=== PATIENT | male | born 1960 | race Hispanic/Latino ===

== ENCOUNTER 2019-03-24 15:57 | Outpatient (CLI) | payer OTHER ==
--- NOTE | 2019-03-24 17:15 | XRay Report ---
LEFT KNEE 3 VIEWS INDICATION / CLINICAL INFORMATION: PAIN LT KNEE. COMPARISON: None available. FINDINGS: Marked medial joint space narrowing with mild lateral and patellofemoral degenerative change. No othe r significant skeletal abnormality. Signer Name: Jose Nuñez MD FACR Signed: 03/24/2019 5:10 PM Workstation Name: [id number]
== END 2019-03-24 15:58 | disposition home or self-care (01) ==
LOC: XRAY 15:57
PROVIDERS: ATTEND Orthopaedic Surgery
DX: M17.12 Unilateral primary osteoarthritis, left knee (principal)

== ENCOUNTER 2019-04-08 06:01 | Inpatient (IN) | payer OTHER ==
--- NOTE | 2019-04-06 11:40 | Anesthesia Consultation ---
Anesthesia Consult and Med Hx Date of service: 04/06/19 - Airway Anesthetic Teeth Evaluation: Poor (multiple loose teeth, worse with bottom incisors) ROM Head & Neck: Adequate Mental/Hyoid Distance: Adequate Mallampati Class: Class II Intubation Access Assessment: Probably Good - Pulmonary Exam CTA: Yes - Cardiac Exam Cardiac Exam: RRR - Pre-Operative Health Status ASA Pre-Surgery Classification: ASA2 Proposed Anesthetic Plan: Epidural Nerve Block: Adductor canal - Pulmonary Hx Smoking: Yes (quit 15 yrs ago) Hx Respiratory Symptoms: No Hx Sleep Apnea: No (STEFF PRE SCREEN HIGH RISK) - Cardiovascular System Hx Hypertension: Yes (recent diagnosis) Hx Heart Attack/AMI: No Hx Percutaneous Transluminal Coronary Angioplasty (PTCA): No - Central Nervous System Hx Neuromuscular Disorder: No CVA: No - Gastrointestinal Hx Ulcer: Yes - Endocrine Hx Renal Disease: No Hx Liver Disease: No Hx Insulin Dependent Diabetes: No Hx Non-Insulin Dependent Diabetes: No Hx Thyroid Disease: No - Other Systems Hx Obesity: No - Additional Comments Anesthesia Medical History Comments: No hx anesthetic complications. Patient OK with epidural but open to GA if necessary. Also consented for nerve block. Will bring antihypertensive with him DOS.
[2019-04-06 12:04] LABS: Basophils # (Auto) 0.1 K/mm3 (0.0-0.1); Basophils % (Auto) 1.4 % (0.0-1.8); Eosinophils # (Auto) 0.1 K/mm3 (0.0-0.4); Eosinophils % (Auto) 1.9 % (0.0-4.3); Hematocrit 35.4 % (35.5-45.6); Hemoglobin 11.5 gm/dl (11.8-15.2); Lymphocytes # (Auto) 0.9 K/mm3 (1.2-5.4); Lymphocytes % (Auto) 14.2 % (13.4-35.0); Mean Corpuscular HGB Conc 32 % (32-34); Mean Corpuscular Volume 72 fl (84-94); Monocytes # (Auto) 0.8 K/mm3 (0.0-0.8); Monocytes % (Auto) 12.9 % (0.0-7.3); Platelet Count 452 K/mm3 (140-440); Red Blood Count 4.95 M/mm3 (3.65-5.03); Red Cell Distribution Width 17.5 % (13.2-15.2)
[2019-04-06 12:32] LABS: Albumin 4.2 g/dL (3.9-5); Calcium 9.4 mg/dL (8.4-10.2)
[~2019-04-08 06:01] MED LIST: CELECOXIB 200 MG CAP PO NR; GABAPENTIN 300 MG CAP PO NR; MIDAZOLAM 2 MG/2 ML INJ IV NR; ceFAZolin/STERILE WATER 2 GM/20 ML SYRINGE IV NR; fentaNYL 100 MCG/2 ML INJ IV PRN
[2019-04-08] MEDS ORDERED: LACTATED RINGERS 1,000 ML ONE (06:52)
[2019-04-08] MEDS ORDERED: ONDANSETRON 4 MG/2 ML INJ IV PRN (07:21)
--- NOTE | 2019-04-08 07:21 | Anesthesia Day of Surgery ---
Anesthesia Day of Surgery - Day of Surgery Patient Examined: Yes Patient H&P Reviewed: Yes Patient is NPO: Yes
[2019-04-08] MEDS ORDERED: LIDOCAINE (1%) 10 MG/1 ML VIAL 20 ML MDV ONE (07:22)
[2019-04-08] MEDS ORDERED: BUPIVACAINE-EPINEPHRINE/PF 0.5%-1:200,000 (30 ML) VIAL INFILTRATI ONE (07:22)
[2019-04-08] MEDS ORDERED: HYDROmorphone 1 MG/1 ML INJ ONE (07:23)
[2019-04-08] MEDS ORDERED: PROPOFOL 200 MG/20 ML VIAL IV ONE ×2 (07:23→08:34)
[2019-04-08] MEDS ORDERED: LIDOCAINE MPF (2%) 20 MG/1 ML VIAL 5 ML ONE (07:24)
[2019-04-08] MEDS ORDERED: CELECOXIB 200 MG CAP ONE (07:25)
[2019-04-08] MEDS ORDERED: ceFAZolin/Water 2 GM/20 ML 2 GM/20 ML SYRINGE IV ONE (07:26)
[2019-04-08] MEDS ORDERED: fentaNYL 100 MCG/2 ML INJ ONE (07:26)
[2019-04-08] MEDS ORDERED: MIDAZOLAM 2 MG/2 ML INJ ONE ×2 (07:26→08:34)
[2019-04-08] MEDS ORDERED: GABAPENTIN 300 MG CAP ONE (07:26)
[2019-04-08] MEDS: LACTATED RINGERS 1,000 ML IV SCH ×2 (07:30→21:35)
[2019-04-08] MEDS ORDERED: ONDANSETRON 4 MG/2 ML INJ ONE ×2 (07:35)
[2019-04-08] MEDS ORDERED: BUPIVACAINE/PF (0.5%) 5 MG/1 ML 30 ML VIAL INFILTRATI ONE ×2 (07:37→10:51)
[2019-04-08] MEDS ORDERED: MORPHINE 10 MG/1 ML INJ ONE (07:37)
[2019-04-08] MEDS ORDERED: SODIUM CHLORIDE 0.9% 50 ML ONE (07:37)
[2019-04-08] MEDS ORDERED: TRANEXAMIC ACID 1,000 MG/10 ML ONE (07:37)
[2019-04-08] MEDS ORDERED: KETOROLAC 30 MG/1 ML INJ ONE (07:37)
[2019-04-08] MEDS ORDERED: SODIUM CHLORIDE 0.9% 200 ML ONE (07:38)
[2019-04-08] MEDS ORDERED: KETAMINE/STERILE WATER 50 MG/ML SYRINGE ONE (08:34)
[2019-04-08] MEDS ORDERED: TRANEXAMIC ACID 1,000 MG/10 ML IV ONE (10:51)
[2019-04-08] MEDS ORDERED: KETOROLAC 30 MG/1 ML INJ IV ONE (10:51)
[2019-04-08] MEDS ORDERED: SODIUM CHLORIDE 0.9% 50 ML VIAL IRRIGATION ONE (10:51)
[2019-04-08] MEDS ORDERED: SODIUM CHLORIDE 0.9% IRRIG SOLN 2000 ML IR ONE (10:51)
[2019-04-08] MEDS ORDERED: MORPHINE 10 MG/1 ML INJ IM ONE (10:51)
[2019-04-08] MEDS ORDERED: SODIUM CHLORIDE 0.9% 100 ML IVPB IV ONE (10:51)
--- NOTE | 2019-04-08 11:19 | Procedure Note ---
Date of procedure: 04/08/19 Pre-op diagnosis: arthritis left knee Post-op diagnosis: same Procedure: Left total knee arthroplasty Procedure The patient was brought to the or after the femoral nerve block and preoperative holding, he was placed in the or table in supine position following induction with Mac anesthesia the patient's left lower extremity was prepped and draped in the usual sterile manner. A timeout procedure was done to identify the patient and the correct operative site The leg was exsanguinated followed by insufflation of the pneumatic tourniquet to 300 mmHg. The midline incision was made centered over the patella this is taken down distally towards due to multiple medical incision was carried down sharply through skin and subcutaneous A medial parapatellar approach was used to gain access to the knee joint. The knee was flexed to 90 following routine examination revealed typical osteoarthritic changes where along the medial lateral compartments with peripheral osteophytes and bare bone in some places followinga large drill bit was used to enter the distal femoral canal following this the distal femoral cutting was applied approximately 8-9 mm of bone was resected next the attention was turned to the proximal tibia using the external alignment again 8-9 mL of proximal tibia was resected care was taken to protect the medial and lateral collateral ligaments the cruciate ligaments were sacrificed longus sizing of the femoral component was performed a # 4 femoral component was selected this was followed by application of the 4 in 1 cutting block care was taken to resect the anterior posterior as well as solution at this at this point in time the knee was sized A flexion and extension Of 11 mm was selected this was followed by application of the trial components the knee was then taken to or range of motion and was found to be stable following this fixation holes were applied to both the distal femur and proximal tibia care was taken to remove the medial lateral menisci as well as any excess bone and soft tissue debris the knee was then copiously irrigated using pulse lavage The bone cement was mixed the bone bleeding surfaces were wiped dry using sterile gauze for menisci tibial component was inserted using the cement technique the 10 mm polyethylene spacer was applied and secured this was followed by placement of the femoral component again excess cement was removed the knee was then held in flexion ostomy extens ion until the cement hardened following hardening of cement again a second look was performed and the residual soft tissue N cement debris were removed at this time the knee was then taken through a range of motion and was found to be stable next the medial patellar retinaculum incision was repaired using #1 Vicryl in interrupted [id number] suture pattern the subcutaneous and skin were closed in a routine manner. Dressings were applied the patient tolerated the procedure the retinal complications he was then taken to postanesthesia recovery Anesthesia: regional, spinal Surgeon: MELCHOR STOKES [employer] Ribbon Machine Operator: ILIR MONTERO Estimated blood loss: 50-100ml Pathology: none Condition: stable Disposition: PACU
[2019-04-08] MEDS: HYDROmorphone 1 MG/1 ML INJ IV PRN ×4 (11:40→21:26)
[2019-04-08] MEDS: HYDROcodone/ACETAMINOPHEN 5-325 MG TAB PO PRN ×2 (13:19→22:04)
--- NOTE | 2019-04-08 17:31 | Post Anesthesia Evaluation ---
- Post Anesthesia Evaluation Patient Participated: Yes Airway Patent: Yes Stable Respiratory Function: Yes Nausea/Vomiting: No Temp > 96.8F: Yes Pain Manageable: Yes Adequeate Hydration: Yes Anesthesia Complications: No Block Receding Appropriately: Not Applicable Patient on Ventilator: No
[2019-04-09] MEDS: HYDROcodone/ACETAMINOPHEN 5-325 MG TAB PO PRN (03:02)
[2019-04-09] MEDS: IBUPROFEN 600 MG TAB PO PRN ×3 (03:17→17:21)
[2019-04-09] MEDS: LACTATED RINGERS 1,000 ML IV SCH (06:23)
[2019-04-09] MEDS: oxyCODONE /ACETAMINOPHEN 5-325MG TAB PO PRN ×4 (06:26→23:01)
[2019-04-09] MEDS: MORPHINE 2 MG/1 ML INJ IV PRN ×2 (06:54→12:51)
[2019-04-09 08:19] LABS: Hematocrit 32.4 % (35.5-45.6); Hemoglobin 10.3 gm/dl (11.8-15.2)
[2019-04-09] MEDS: ENOXAPARIN 40 MG/0.4 ML INJ SUB-Q SCH (12:51)
[2019-04-09] MEDS: HYDROmorphone 1 MG/1 ML INJ IV PRN (16:01)
[2019-04-10] MEDS: oxyCODONE /ACETAMINOPHEN 5-325MG TAB PO PRN ×4 (04:33→22:59)
[2019-04-10] MEDS: HYDROmorphone 1 MG/1 ML INJ IV PRN ×3 (07:45→18:54)
[2019-04-10] MEDS: ENOXAPARIN 40 MG/0.4 ML INJ SUB-Q SCH (10:44)
--- NOTE | 2019-04-10 23:37 | XRay Report ---
HISTORY:post op evaluation COMPARISON: None. TECHNIQUE: AP lateral and obliques views were obtained FINDINGS: Bones: No fracture or dislocation. Total right knee arthroplasty is present. Joint spaces: Maintained. Soft tissues: Gas is present within the soft tissues Additional findings: None. IMPRESSION: 1. Postoperative changes left knee, with gas within the soft tissue cannot totally exclude inflammato ry process recommend clinical correlation Signer Name: Chas Houser MD Signed: 04/10/2019 11:33 PM Workstation Name: [id number]
[2019-04-11] MEDS: oxyCODONE /ACETAMINOPHEN 5-325MG TAB PO PRN ×3 (04:18→15:03)
[2019-04-11] MEDS: IBUPROFEN 600 MG TAB PO PRN ×2 (07:43→17:51)
[2019-04-11] MEDS: ENOXAPARIN 40 MG/0.4 ML INJ SUB-Q SCH (09:02)
[2019-04-11] MEDS: VALSARTAN 40 MG TAB PO SCH (13:50)
[2019-04-11] MEDS: HYDROmorphone 1 MG/1 ML INJ IV PRN (22:58)
[2019-04-11] MEDS: MORPHINE 2 MG/1 ML INJ IV PRN (23:44)
[2019-04-12] MEDS: oxyCODONE /ACETAMINOPHEN 5-325MG TAB PO PRN (02:50)
[2019-04-12] MEDS: MORPHINE 2 MG/1 ML INJ IV PRN (06:11)
[2019-04-12] MEDS: IBUPROFEN 600 MG TAB PO PRN (06:58)
[2019-04-12] MEDS: HYDROmorphone 1 MG/1 ML INJ IV PRN ×3 (10:41→21:07)
[2019-04-12] MEDS: VALSARTAN 40 MG TAB PO SCH (13:38)
[2019-04-12] MEDS: ENOXAPARIN 40 MG/0.4 ML INJ SUB-Q SCH (13:38)
[2019-04-12] MEDS ORDERED: ACETAMINOPHEN 500 MG TAB PO PRN (16:37)
--- NOTE | 2019-04-12 16:43 | Consultation ---
History of Present Illness - Reason for Consult Consult date: 04/11/19 Medical management Requesting physician: MELCHOR STOKES - History of Present Illness Status post left TKA. Postop patient doing well. Complains of left knee pain and redness. Also low-grade fever. Past History Past Medical History: GERD, hypertension Past Surgical History: total knee replacement Social history: lives with family, smoking Family history: hypertension Medications and Allergies Allergies Allergy/AdvReac Type Severity Reaction Status Date / Time No Known Allergies Allergy Verified 04/06/19 11:25 Home Medications Medication Instructions Recorded Confirmed Last Taken Type Acetaminophen [Non-Aspirin Extra 500 mg PO PRN PRN 04/08/19 04/08/19 03/22/19 08:00 History Strength] Cetirizine HCl [Cetirizine 5mg tab] 10 mg PO QDAY 04/08/19 04/08/19 04/06/19 08:00 History DOXYCYCLINE Hyclate [Vibramycin] 100 mg PO Q12HR 04/08/19 04/08/19 04/06/19 08:00 History Losartan [Cozaar] 25 mg PO QDAY 04/08/19 04/08/19 04/08/19 05:00 History Omeprazole 40 mg PO QDAY 04/08/19 04/08/19 04/06/19 08:00 History Spironolactone [Aldactone] 25 mg PO QDAY 04/08/19 04/08/19 04/06/19 08:00 History Apixaban [Eliquis] 5 mg PO DAILY #30 tablet 04/09/19 Unknown Rx oxyCODONE /ACETAMINOPHEN [Percocet 1 tab PO Q4HR #30 tab 04/09/19 Unknown Rx 5/325] Active Meds: Active Medications Acetaminophen (Tylenol) 500 mg PO PRN PRN PRN Reason: Pain, Moderate (4-6) Enoxaparin Sodium (Enoxaparin) 40 mg SUB-Q QDAY COLIN Last Admin: 04/12/19 13:38 Dose: 40 mg Documented by: Hydromorphone HCl (Dilaudid) 0.5 mg IV Q4H PRN PRN Reason: Pain , Severe (7-10) Last Admin: 04/12/19 10:41 Dose: 0.5 mg Documented by: Lactated Ringer's (Lactated Ringers) 1,000 mls @ 100 mls/hr IV DIRECT COLIN Last Admin: 04/09/19 06:23 Dose: 100 mls/hr Documented by: Ibuprofen (Ibuprofen) 600 mg PO Q6H PRN PRN Reason: Pain, Mild (1-3) Last Admin: 04/12/19 06:58 Dose: 600 mg Documented by: Losartan Potassium (Cozaar) 25 mg PO QDAY [facility] Miscellaneous Medication (Omeprazole [Omeprazole]) 40 mg PO QDAY [facility] Miscellaneous Medication (Cetirizine Hcl [Cetirizine 5mg Tab]) 10 mg PO QDAY [facility] Morphine Sulfate (Morphine) 2 mg IV Q4H PRN PRN Reason: Pain, Moderate (4-6) Last Admin: 04/12/19 06:11 Dose: 2 mg Documented by: Oxycodone/Acetaminophen (Percocet 5/325) 2 tab PO Q4H PRN PRN Reason: Pain, Moderate (4-6) Last Admin: 04/12/19 02:50 Dose: 2 tab Documented by: Spironolactone (Aldactone) 25 mg PO QDAY [facility] Valsartan (Diovan) 80 mg PO QDAY [facility] Last Admin: 04/12/19 13:38 Dose: 80 mg Documented by: Review of Systems All systems: negative Exam - Constitutional Vitals: Temp Pulse Resp BP Pulse Ox 98.1 F 94 H 19 132/90 97 04/12/19 10:37 04/12/19 10:37 04/12/19 10:37 04/12/19 10:37 04/12/19 10:37 General appearance: Present: no acute distress, well-nourished - EENT Eyes: Present: PERRL ENT: hearing intact, clear oral mucosa - Neck Neck: Present: supple, normal ROM - Respiratory Respiratory effort: normal Respiratory: bilateral: CTA - Cardiovascular Heart rate: 76 Rhythm: regular Heart Sounds: Present: S1 & S2. Absent: rub, click - Extremities Extremities: no ischemia, pulses intact, pulses symmetrical, No edema Extremity abnormal: erythema, tenderness Peripheral Pulses: within normal limits - Abdominal General gastrointestinal: Present: soft, non-tender, non-distended, normal bowel sounds Male genitourinary: Present: normal - Rectal Rectal Exam: deferred - Integumentary Integumentary: Present: clear, warm, dry - Musculoskeletal Musculoskeletal: gait normal, strength equal bilaterally - Psychiatric Psychiatric: appropriate mood/affect, intact judgment & insight - Neurologic Neurologic: CNII-XII intact, moves all extremities - Allied Health Allied health notes reviewed: nursing, case management Results - Labs CBC & Chem 7: 04/12/19 17:25 04/12/19 17:25 Labs: Short CBC 04/12/19 Range/Units 17:25 WBC 10.4 (4.5-11.0) K/mm3 Hgb 9.9 L (11.8-15.2) gm/dl Hct 30.9 L (35.5-45.6) % Plt Count 415 (140-440) K/mm3 BMP 04/12/19 17:25 Sodium 136 L Potassium 5.3 H Chloride 100.2 Carbon Dioxide 24 BUN 37 H Creatinine 1.2 Glucose 109 H Calcium 9.1 Liver Function 04/12/19 Range/Units 17:25 Total Bilirubin 0.30 (0.1-1.2) mg/dL AST 40 (5-40) units/L ALT 35 (7-56) units/L Alkaline Phosphatase 78 (35-129) units/L Albumin 3.0 L (3.9-5) g/dL Assessment and Plan - Patient Problems (1) Cellulitis of knee, left Current Visit: Yes Status: Acute Plan to address problem: Patient started on IV clindamycin (2) Hypertension Current Visit: Yes Status: Chronic Qualifiers: Hypertension type: essential hypertension Qualified Code(s): I10 - Essential (primary) hypertension Plan to address problem: Continue antihypertensives (3) GERD (gastroesophageal reflux disease) Current Visit: Yes Status: Chronic Qualifiers: Esophagitis presence: without esophagitis Qualified Code(s): K21.9 - Gastro-esophageal reflux disease without esophagitis Plan to address problem: Continue PPIs (4) Allergic rhinitis Current Visit: Yes Status: Chronic Qualifiers: Allergic rhinitis seasonality: unspecified Plan to address problem: Continue cetirizine (5) DVT prophylaxis Current Visit: Yes Status: Acute Plan to address problem: On SCDs and GI prophylaxis
[2019-04-12] MEDS ORDERED: NON-FORMULARY EACH (Omeprazole [Omeprazole] 40 MG) PO SCH (16:45)
[2019-04-12] MEDS ORDERED: CETIRIZINE HCL 10 MG PO SCH (16:45)
[2019-04-12] MEDS ORDERED: SPIRONOLACTONE 25 MG TAB PO SCH (17:00)
[2019-04-12] MEDS: SODIUM CHLORIDE 0.9% 1000 ML 1,000 ML IV SCH (17:08)
[2019-04-12 17:45] LABS: Basophils # (Auto) 0.1 K/mm3 (0.0-0.1); Basophils % (Auto) 0.5 % (0.0-1.8); Eosinophils # (Auto) 0.4 K/mm3 (0.0-0.4); Eosinophils % (Auto) 3.7 % (0.0-4.3); Hematocrit 30.9 % (35.5-45.6); Hemoglobin 9.9 gm/dl (11.8-15.2); Lymphocytes % (Auto) 9.6 % (13.4-35.0); Mean Corpuscular HGB Conc 32 % (32-34); Mean Corpuscular Volume 72 fl (84-94); Monocytes # (Auto) 1.4 K/mm3 (0.0-0.8); Monocytes % (Auto) 13.9 % (0.0-7.3); Platelet Count 415 K/mm3 (140-440); Red Blood Count 4.28 M/mm3 (3.65-5.03); Red Cell Distribution Width 17.4 % (13.2-15.2)
[2019-04-12 18:00] LABS: Alanine Aminotransferase 35 units/L (7-56); BUN/Creatinine Ratio 31; Blood Urea Nitrogen 37 mg/dL (9-20); Calcium 9.1 mg/dL (8.4-10.2); Hemolysis Index 3
[2019-04-12] MEDS: LOSARTAN 25 MG TAB PO SCH (18:23)
[2019-04-12] MEDS ORDERED: diphenhydrAMINE 50 MG/ML VIAL IV PRN (21:05)
[2019-04-13] MEDS: MORPHINE 2 MG/1 ML INJ IV PRN ×2 (01:22→12:33)
[2019-04-13] MEDS: oxyCODONE /ACETAMINOPHEN 5-325MG TAB PO PRN ×2 (05:20→16:04)
[2019-04-13] MEDS: SODIUM CHLORIDE 0.9% 1000 ML 1,000 ML IV SCH (05:21)
[2019-04-13] MEDS ORDERED: SODIUM BICARB 8.4% 50 MEQ/50 ML SYRINGE IV NR (08:20)
--- NOTE | 2019-04-13 08:20 | Progress Note ---
Assessment and Plan - Patient Problems (1) Hyperkalemia Current Visit: Yes Status: Acute Plan to address problem: Mild IV calcium gluconate Sodium bicarbonate Recheck potassium (2) Cellulitis of knee, left Current Visit: Yes Status: Acute Plan to address problem: Patient started on IV clindamycin (3) Hypertension Current Visit: Yes Status: Chronic Qualifiers: Hypertension type: essential hypertension Qualified Code(s): I10 - E ssential (primary) hypertension Plan to address problem: Continue antihypertensives (4) GERD (gastroesophageal reflux disease) Current Visit: Yes Status: Chronic Qualifiers: Esophagitis presence: without esophagitis Qualified Code(s): K21.9 - Ga stro-esophageal reflux disease without esophagitis Plan to address problem: Continue PPIs (5) Allergic rhinitis Current Visit: Yes Status: Chronic Qualifiers: Allergic rhinitis seasonality: unspecified Plan to address problem: Continue cetirizine (6) DVT prophylaxis Current Visit: Yes Status: Acute Plan to address problem: On SCDs and GI prophylaxis Subjective Date of service: 04/12/19 Principal diagnosis: Status post left TKA, cellulitis of left knee Interval history: Continues to have pain and redness of the left knee Objective - Constitutional Vitals: Vital Signs - 12hr 04/13/19 04/13/19 04/13/19 00:23 04:19 06:52 Temperature 98.7 F 97.8 F 97.5 F L Pulse Rate 117 H 126 H 107 H Respiratory 18 18 20 Rate Blood Pressure 133/79 137/80 128/80 O2 Sat by Pulse 94 96 94 Oximetry General appearance: Present: no acute distress, well-nourished - EENT Eyes: PERRL, EOM intact ENT: hearing intact, clear oral mucosa Ears: bilateral: normal - Neck Neck: supple, normal ROM - Respiratory Respiratory effort: normal Respiratory: bilateral: CTA - Breasts Breasts: normal - Cardiovascular Heart rate: 78 Rhythm: regular Heart Sounds: Present: S1 & S2. Absent: gallop, rub Extremities: no ischemia, pulses intact, No edema, normal color, Full ROM Extremity abnormal: erythema, tenderness - Gastrointestinal General gastrointestinal: Present: soft, non-tender, non-distended, normal bowel sounds - Genitourinary Male genitourinary: deferred, normal - Integumentary Integumentary: clear, warm, dry - Musculoskeletal Musculoskeletal: 1, strength equal bilaterally - Neurologic Neurologic: moves all extremities - Psychiatric Psychiatric: memory intact, appropriate mood/affect, intact judgment & insight - Labs CBC & Chem 7: 04/12/19 17:25 04/12/19 17:25 Labs: Abnormal lab results 04/12/19 04/12/19 Range/Units 17:25 17:25 Hgb 9.9 L (11.8-15.2) gm/dl Hct 30.9 L (35.5-45.6) % MCV 72 L (84-94) fl MCH 23 L (28-32) pg RDW 17.4 H (13.2-15.2) % Lymph % (Auto) 9.6 L (13.4-35.0) % [place] % (Auto) 13.9 H (0.0-7.3) % Lymph # 1.0 L (1.2-5.4) K/mm3 [place] # 1.4 H (0.0-0.8) K/mm3 Seg Neutrophils % 72.3 H (40.0-70.0) % Sodium 136 L (137-145) mmol/L Potassium 5.3 H (3.6-5.0) mmol/L BUN 37 H (9-20) mg/dL Glucose 109 H (75-100) mg/dL Albumin 3.0 L (3.9-5) g/dL
--- NOTE | 2019-04-13 08:23 | Discharge Summary ---
Providers - Providers Date of Admission: 04/08/19 06:01 Date of discharge: 04/13/19 Attending physician: MELCHOR STOKES MD 04/08/19 11:13 Consult to Case Management [CONS] Routine Services Needed at Discharge: Home Health Services Physical Therapy DME Equipment Notified:: cm notified 04/08/19 11:16 Physical Therapy Evaluation and Treat [CONS] Routine Comment: Reason For Exam: postoperative evaluation Weight bearing status?: Full wt bearing Assistive devices?: Yes If so list: Walker 04/10/19 22:37 Consult to Physician [CONS] Urgent Comment: Consulting Provider: FIOR GORDON Physician Instructions: patient need medical evaluation prior to discharge Reason For Exam: medical management Primary care physician: [facility] Hospitalization Procedures: S/p L TKA--did well except some infection in L Knee. Hospital course: (1) Hyperkalemia Current Visit: Yes Status: Acute Plan to address problem: Mild IV calcium gluconate Sodium bicarbonate Potassium level normal Hold Spironolactone (2) Cellulitis of knee, left Current Visit: Yes Status: Acute Plan to address problem: Patient started on IV clindamycin Being sent home on Oral Clindamycin (3) Hypertension Current Visit: Yes Status: Chronic Qualifiers: Hypertension type: essential hypertension Qualified Code(s): I10 - Essential (primary) hypertension Plan to address problem: Continue antihypertensives (4) GERD (gastroesophageal reflux disease) Current Visit: Yes Status: Chronic Qualifiers: Esophagitis presence: without esophagitis Qualified Code(s): K21.9 - Gastro-esophageal reflux disease without esophagitis Plan to address problem: Continue PPIs (5) Allergic rhinitis Current Visit: Yes Status: Chronic Qualifiers: Allergic rhinitis seasonality: unspecified Plan to address problem: Continue cetirizine Disposition: [id number] HOME UNDER HOME HLTH - Discharge Diagnoses (1) Hyperkalemia Status: Acute (2) Cellulitis of knee, left Status: Acute (3) Hypertension Status: Chronic Qualifiers: Hypertension type: essential hypertension Qualified Code(s): I10 - Essential (primary) hypertension (4) GERD (gastroesophageal reflux disease) Status: Chronic Qualifiers: Esophagitis presence: without esophagitis Qualified Code(s): K21.9 - Gastro-esophageal reflux disease without esophagitis (5) Allergic rhinitis Status: Chronic Qualifiers: Allergic rhinitis seasonality: unspecified (6) DVT prophylaxis Status: Acute Core Measure Documentation - Palliative Care Palliative Care/ Comfort Measures: Not Applicable - Core Measures Any of the following diagnoses?: none Exam - Constitutional Vitals: Temp Pulse Resp BP Pulse Ox 97.5 F L 107 H 20 128/80 94 04/13/19 06:52 04/13/19 06:52 04/13/19 06:52 04/13/19 06:52 04/13/19 06:52 General appearance: Present: no acute distress, well-nourished - EENT Eyes: Present: PERRL ENT: hearing intact, clear oral mucosa - Neck Neck: Present: supple, normal ROM - Respiratory Respiratory effort: normal Respiratory: bilateral: CTA - Cardiovascular Heart rate: 78 Rhythm: regular Heart Sounds: Present: S1 & S2. Absent: rub, click - Extremities Extremities: no ischemia, pulses intact, pulses symmetrical, No edema Extremity abnormal: other (decreased ROMat L knee sec to TKA) Peripheral Pulses: within normal limits - Abdominal General gastrointestinal: Present: soft, non-tender, non-distended, normal bowel sounds Male genitourinary: Present: normal - Integumentary Integumentary: Present: clear, warm, dry - Musculoskeletal Musculoskeletal: gait normal, strength equal bilaterally - Psychiatric Psychiatric: appropriate mood/affect, intact judgment & insight - Neurologic Neurologic: CNII-XII intact, moves all extremities - Allied Health Allied health notes reviewed: nursing, case management Plan Activity: no restrictions Weight Bearing Status: Weight Bear as Tolerated Diet: low salt Wound: open to air, change dressing, per your surgeon's advice Special Instructions: physical therapy Follow up with: [facility] [Primary Care Provider] - 7 Days MELCHOR STOKES MD [Staff Physician] - 7 Days Prescriptions: Apixaban [Eliquis] 5 mg PO DAILY #30 tablet oxyCODONE /ACETAMINOPHEN [Percocet 5/325] 1 tab PO Q4HR #30 tab
[2019-04-13] MEDS ORDERED: CALCIUM GLUCONATE 2,000 MG in SODIUM CHLORIDE 0.9% 100 ML IV ONE (09:00)
[2019-04-13] MEDS ORDERED: PANTOPRAZOLE 40 MG TAB PO SCH (10:00)
[2019-04-13] MEDS ORDERED: CETIRIZINE 10 MG TAB PO SCH (10:00)
[2019-04-13] MEDS ORDERED: ACETAMINOPHEN 500 MG TAB PO PRN (10:00)
[2019-04-13 10:33] LABS: Hematocrit 28.3 % (35.5-45.6); Hemoglobin 9.2 gm/dl (11.8-15.2); Mean Corpuscular HGB Conc 32 % (32-34); Mean Corpuscular Volume 72 fl (84-94); Platelet Count 411 K/mm3 (140-440); Red Blood Count 3.94 M/mm3 (3.65-5.03); Red Cell Distribution Width 17.2 % (13.2-15.2)
[2019-04-13 10:56] LABS: BUN/Creatinine Ratio 29; Blood Urea Nitrogen 35 mg/dL (9-20); Calcium 9.4 mg/dL (8.4-10.2); Hemolysis Index 4
[2019-04-13] MEDS: VALSARTAN 40 MG TAB PO SCH (12:32)
[2019-04-13] MEDS: LOSARTAN 25 MG TAB PO SCH (12:33)
[2019-04-13] MEDS: ENOXAPARIN 40 MG/0.4 ML INJ SUB-Q SCH (12:34)
[2019-04-13 12:54] LABS: Hypochromasia 1+; Myelocytes # (Manual) 0.1 K/mm3; Platelet Estimate Consistent w Auto; Total Cells Counted 100
[2019-04-13 13:26] VITALS: BP 151/86
== END 2019-04-13 16:52 | disposition home health service (06) | DRG 469 ==
LOC: 3A 06:01 → 3B-SURG 12:54
PROVIDERS: ADMIT Orthopaedic Surgery; ATTEND Orthopaedic Surgery
PROC: 0SRD0J9 Replacement of Left Knee Joint with Synthetic Substitute, Cemented, Open Approach (ICD-10-PCS; principal; 2019-04-08)
PROC: 3E0T3BZ Introduction of Anesthetic Agent into Peripheral Nerves and Plexi, Percutaneous Approach (ICD-10-PCS; 2019-04-08)
DX: M17.12 Unilateral primary osteoarthritis, left knee (principal); N17.0 Acute kidney failure with tubular necrosis; L03.116 Cellulitis of left lower limb; E87.5 Hyperkalemia; I10 Essential (primary) hypertension; J30.9 Allergic rhinitis, unspecified; K21.9 Gastro-esophageal reflux disease without esophagitis; Z82.49 Family history of ischemic heart disease and other diseases of the circulatory system; Z79.899 Other long term (current) drug therapy; Z87.891 Personal history of nicotine dependence
CPT/HCPCS: 36415; 80048; 80053; 85007; 85014; 85018; 85025; 88304; 88305; 88311; G0378; A4217; C1776; J0610; J0690; J1170; J1200; J1650; J1885; J2250; J2270; J2405; J2704; J3010; J7030; J7120